=== PATIENT | male | born 1980 | race Caucasian/White ===

== ENCOUNTER 2017-04-15 08:00 | Outpatient (CLI) | payer OTHER ==
[2017-04-15 19:22] LABS: ALBUMIN 4.3 g/dL (3.2-5.5); ALBUMIN/GLOBULIN RATIO 1.1 (1.0-2.2); ALKALINE PHOSPHATASE 59 IU/L (42-121); ALT ALANINE AMINOTRANSFERASE 45 IU/L (10-60); AST ASPARTATE AMINOTRANSFERASE 30 IU/L (10-42); BILIRUBIN,TOTAL 0.4 mg/dL (0.2-1.0); BUN - BLOOD UREA NITROGEN 9 mg/dL (6-20); CALCIUM 9.6 mg/dL (8.5-10.3); CARBON DIOXIDE - CO2 26 mmol/L (21-32); CHLORIDE 100 mmol/L (101-111); CHOL/HDL RATIO 4.7 (<5.0); CHOLESTEROL 240 mg/dL; CREATININE 0.9 mg/dL (0.6-1.2); GFR - MDRD 95 (>89); GLUCOSE 74 mg/dL (70-100); HDL CHOLESTEROL 51 mg/dL; LDL CHOLESTEROL,CALCULATED 154 mg/dL; SODIUM 138 mmol/L (135-145); TOTAL PROTEIN 8.3 g/dL (6.7-8.2); VLDL CHOLESTEROL 35 mg/dL
== END 2017-04-15 08:01 | disposition home or self-care (01) ==
LOC: LAB.WCP 08:00
PROVIDERS: ATTEND Family Medicine
DX: R53.83 Other fatigue (principal)
CPT/HCPCS: 36415; 80053; 80061; 83721; 84403; 84443

== ENCOUNTER 2017-09-30 13:30 | Emergency (ER) | payer OTHER ==
--- NOTE | 2017-09-30 13:49 | ED Physician Documentation ---
PD HPI UPPER EXT INJURY - Stated complaint Stated Complaint: HAND VS KNIFE - Chief complaint Chief Complaint: Laceration - History obtained from History obtained from: Patient - History of Present Illness Location: Right, Hand (palm) Type of injury: Laceration (he reached into his bag of clothing/personal items and his folding knife was unintentionally open. He cut palm as it struck into hand.) Where injury occurred: Work Timing - onset: Today Timing - details: Abrupt onset Worsened by: Moving, Palpating Associated symptoms: No: Numbness, Tingling Similar symptoms before: Has not had sx before Recently seen: Not recently seen Review of Systems Neurologic: denies: Focal weakness, Numbness PD PAST MEDICAL HISTORY - Past Medical History Past Medical History: Yes Cardiovascular: None Respiratory: Asthma Endocrine/Autoimmune: None GI: None : None HEENT: None Psych: None Musculoskeletal: None Derm: None - Past Surgical History Past Surgical History: No - Present Medications Home Medications: Ambulatory Orders Medication Instructions Recorded Confirmed Fexofenadine [Valentina] 60 mg ORAL DAILY 08/20/14 08/20/14 inFLIXimab [Remicade] 100 mg IV TITR 08/20/14 08/20/14 - Allergies Allergies/Adverse Reactions: Allergies Allergy/AdvReac Type Severity Reaction Status Date / Time sulfamethoxazole Allergy Cramps Verified 09/30/17 13:42 [From ] trimethoprim [From ] Allergy Cramps Verified 09/30/17 13:42 - Social History Does the pt smoke?: No Smoking Status: Never smoker Does the pt drink ETOH?: No Does the pt have substance abuse?: No - Immunizations Immunizations are current?: Yes - POLST Patient has POLST: No PD ED PE NORMAL - Vitals Vital signs reviewed: Yes - General General: Alert and oriented X 3, Well developed/nourished - Derm Derm: Normal color, Warm and dry - Extremities Extremities: Other (right palm with clean laceration to fatty tissue. No bleeding. No FB. ) - Neuro Neuro: No motor deficit, No sensory deficit Results - Vitals Vitals: Vital Signs - 24 hr 09/30/17 09/30/17 13:31 14:35 Temperature 36.6 C Heart Rate 86 80 Respiratory 16 20 Rate Blood Pressure 131/83 H 128/98 H O2 Saturation 99 95 Oxygen O2 Source Room air Procedures - Laceration (location) right palm Length in cm: 2 Wound type: Linear, Clean Neurovascular status: Sensory intact, Motor intact, Vascular intact Tendon involvement: Tendon intact Anesthesia: Lidocaine 1% with epi Wound Preparation: Wound explored, To the base. No: FB identified Skin layer closure: Nylon, Interrupted, Size #-0 - enter number (4), Sutures - enter # (5) Other: Patient tolerated well, No complications, Neurovascular intact, Dressing applied, Tetanus booster given Complexity: Simple PD MEDICAL DECISION MAKING - ED course Complexity details: considered differential, d/w patient - Sepsis Event Vital Signs: Vital Signs - 24 hr 09/30/17 09/30/17 13:31 14:35 Temperature 36.6 C Heart Rate 86 80 Respiratory 16 20 Rate Blood Pressure 131/83 H 128/98 H O2 Saturation 99 95 Oxygen O2 Source Room air Departure - Departure Disposition: 01 Home, Self Care Clinical Impression: Laceration of palm Qualifiers: Encounter type: initial encounter Laterality: right Qualified Code(s): S61.411A - Laceration without foreign body of right hand, initial encounter Condition: Stable Record reviewed to determine appropriate education?: Yes Instructions: ED Laceration Hand Follow-Up: Johnathan Camacho MD [Primary Care Provider] - Comments: It is okay to wash and shower. Clean off the wound twice a day with soap and water, or peroxide and water. Apply some antibiotic ointment to it to keep it moist. Also to watch for signs of infection such as purulence, redness or increasing pain. Return to your primary care or the ER at the specified time for suture removal. Suture removal 7 or 8 days. Tylenol or ibuprofen if needed for pain. You were given a tetanus booster here so should be good for 10 more years. Discharge Date/Time: 09/30/17 14:36
[2017-09-30] MEDS ORDERED: TETANUS/DIPHTHERIA/PERTUSSIS 0.5 ML SYRINGE IM ONE (14:13)
[2017-09-30 14:36] VITALS: BP 128/98
== END 2017-09-30 14:36 | disposition home or self-care (01) ==
LOC: ED 13:30
DX: S61.411A Laceration without foreign body of right hand, initial encounter (principal); Z23 Encounter for immunization; W26.0XXA Contact with knife, initial encounter
CPT/HCPCS: 12001; 99283

== ENCOUNTER 2018-08-06 22:09 | Emergency (ER) | payer BC, OTHER ==
[2018-08-06 22:22] VITALS: BP 135/30
--- NOTE | 2018-08-06 22:46 | ED Physician Documentation ---
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 He said his finger was "Z-shaped". Was hurt really hurting mostly at the knuckle. He kept working in fact pulled out another stump. He has not taken any medications for the pain he is icing it now. He is right-handed. He has a history of Crohn's disease. Review of Systems Skin: denies: Abrasion (s), Laceration (s) Musculoskeletal: reports: Extremity pain PD PAST MEDICAL HISTORY - Past Medical History Past Medical History: Yes Cardiovascular: None Respiratory: Asthma Neuro: None Endocrine/Autoimmune: None GI: None : None HEENT: None Psych: None Musculoskeletal: None Derm: None - Past Surgical History Past Surgical History: No - Present Medications Home Medications: Ambulatory Orders Medication Instructions Recorded Confirmed Fexofenadine [Valentina] 60 mg ORAL DAILY 08/20/14 08/20/14 inFLIXimab [Remicade] 100 mg IV TITR 08/20/14 08/20/14 - Allergies Allergies/Adverse Reactions: Allergies Allergy/AdvReac Type Severity Reaction Status Date / Time sulfamethoxazole Allergy Cramps Verified 09/30/17 13:42 [From ] trimethoprim [From ] Allergy Cramps Verified 09/30/17 13:42 - Social History Does the pt smoke?: No Smoking Status: Never smoker Does the pt drink ETOH?: No Does the pt have substance abuse?: No - Immunizations Immunizations are current?: Yes - POLST Patient has POLST: No PD ED PE NORMAL - Vitals Vital signs reviewed: Yes - General General: Alert and oriented X 3, No acute distress, Well developed/nourished - HEENT HEENT: Atraumatic - Cardiac Cardiac: RRR - Respiratory Respiratory: No respiratory distress - Extremities Extremities: No deformity, Other (There is no obvious swelling or bruising to the left hand. He has tenderness at the fourth MCP joint. He is able to make a full fist sensation is intact light touch in the fourth digit. ) Results - Vitals Vitals: Vital Signs - 24 hr 08/06/18 08/06/18 08/06/18 22:17 22:53 23:29 Temperature 36.9 C Heart Rate 90 Respiratory 16 17 16 Rate Blood Pressure 135/30 H O2 Saturation 98 Oxygen O2 Source Room air - Rads (name of study) L hand Radiology: EMP read indepedently, EMP read contemporaneously, See rad report (Negative for fracture) PD MEDICAL DECISION MAKING - ED course Complexity details: d/w patient ED course: X-rays were discussed. The patient was given ibuprofen 600 mg and 1 hydrocodone tablet for pain. Instructed to continue icing and take ibuprofen [id number] as needed for pain. He was offered a note for work but said he is off over the weekend and should be able to return on Thursday. Departure - Departure Disposition: 01 Home, Self Care Clinical Impression: Sprain, Injury of hand Condition: Good Instructions: ED Sprain Finger Follow-Up: Antonio Pinto PA-C [Physician No Access] - Briseida Olmedo PA [Primary Care Provider] - Comments: Take ibuprofen 3 to 4 tablets every 8 hours with food. Continue to ice the finger and minimize activity for the next couple of days. Follow-up with your primary care provider if he continued to have pain. Discharge Date/Time: 08/06/18 23:29
[2018-08-06] MEDS ORDERED: HYDROcod/ACETAM 5/325 MG TABLET PO STA (23:04)
[2018-08-06] MEDS ORDERED: IBUPROFEN 600 MG TABLET PO STA (23:04)
--- NOTE | 2018-08-06 23:09 | XRAY Report ---
Reason: PAIN/TENDERNESS/INJURY R HAND Procedure Date: 08/06/2018 Accession Number: [id number] / [id number] Procedure: XR - Hand 3 View LT CPT Code: FULL RESULT: EXAM: LEFT HAND RADIOGRAPHY EXAM DATE: 08/06/2018 10:55 PM. CLINICAL HISTORY: PAIN/TENDERNESS/INJURY R HAND. COMPARISON: HAND 3 VIEW RT 08/20/2014 6:56 PM. TECHNIQUE: 3 views. FINDINGS: Bones: Normal. No fractures or bone lesions. Joints: Normal. No subluxations. Soft Tissues: Normal. No soft tissue swelling. IMPRESSION: Normal hand radiography. [facility]
== END 2018-08-06 23:29 | disposition home or self-care (01) ==
LOC: ED 22:09
DX: S63.92XA Sprain of unspecified part of left wrist and hand, initial encounter (principal); S66.912A Strain of unspecified muscle, fascia and tendon at wrist and hand level, left hand, initial encounter; W20.8XXA Other cause of strike by thrown, projected or falling object, initial encounter; Y93.H2 Activity, gardening and landscaping; Y92.009 Unspecified place in unspecified non-institutional (private) residence as the place of occurrence of the external cause
CPT/HCPCS: 73130; 99283; A9270

== ENCOUNTER 2018-12-24 09:16 | Outpatient (CLI) | payer BC | END 2018-12-24 23:59 | disposition home or self-care (01) | LOC: LAB 09:16 | PROVIDERS: ATTEND Surgery | DX: Z53.9 Procedure and treatment not carried out, unspecified reason (principal) | CPT/HCPCS: 88304 ==